=== PATIENT | male | born 1955 | race Caucasian/White ===

== ENCOUNTER → 2017-05-24 | Day surgery (SDC) | payer BC, MEDICAID ==
[~2017-05-24] MED LIST: Ketamine 200 MG/20 ML MDV ONE; Lactated Ringers 1,000 ML IV SCH; Propofol 200 MG/20 ML SDV ONE
[2017-05-24 10:53] VITALS: BP 165/99
--- NOTE | 2017-06-08 08:17 | OR ---
PREOPERATIVE DIAGNOSIS: History of colon polyps. POSTOPERATIVE DIAGNOSIS: History of colon polyps. PROCEDURE PERFORMED: Colonoscopy. INDICATION: The patient is here for colonoscopy at this time. NARRATIVE: The patient was brought to the operating room. Sedation was given per Anesthesia. He was placed in left lateral position. First, the rectal exam was done and was normal. The scope was introduced into the rectum and slowly advanced through the rectum, sigmoid, descending, transverse, and ascending colon until the cecum was reached. Upon reaching the cecum, the scope was slowly withdrawn looking at all mucosal surfaces on the way out. No mucosal abnormalities, lesions, or polyps were noted. He did have moderate sigmoid diverticulosis. FINAL DIAGNOSIS: Sigmoid diverticulosis. Recommend repeat colonoscopy in 10 years time. BKD: 06/07/2017 12:03:13 MODL: 06/07/2017 19:28:16 /[id number]
== END | disposition home or self-care (01) ==
LOC: VM.SDS 08:27
PROVIDERS: ATTEND Surgery
DX: Z12.11 Encounter for screening for malignant neoplasm of colon (principal); K57.30 Diverticulosis of large intestine without perforation or abscess without bleeding; I10 Essential (primary) hypertension; K21.9 Gastro-esophageal reflux disease without esophagitis; R36.1 Hematospermia; Z86.010 Personal history of colon polyps; Z98.890 Other specified postprocedural states; Z79.899 Other long term (current) drug therapy; Z88.8 Allergy status to other drugs, medicaments and biological substances
CPT/HCPCS: 45378; J2704; J7120